=== PATIENT | male | born 1990 | race Caucasian/White ===

== ENCOUNTER 2016-09-09 20:18 | Emergency (ER) | payer MEDICAID ==
[~2016-09-09] VITALS: Ht 175.3 cm; Wt 92.5 kg
[2016-09-09 20:18] VITALS: BP_SYST 132
[2016-09-09] MEDS ORDERED: HYDROcodone/ACETAMIN 5-325 MG TAB (NORCO/ VICODIN) PO ONE (22:15)
[2016-09-09 22:55] VITALS: BP_SYST 128
== END 2016-09-09 22:55 | disposition home or self-care (01) ==
LOC: SED 20:18
DX: M25.521 Pain in right elbow (principal); M25.531 Pain in right wrist
CPT/HCPCS: 99284

== ENCOUNTER 2017-01-17 12:08 | Emergency (ER) | payer MEDICAID ==
[~2017-01-17] VITALS: Ht 172.7 cm; Wt 86.2 kg
[2017-01-17 12:17] VITALS: BP_SYST 147
[2017-01-17 13:31] VITALS: BP_SYST 135
== END 2017-01-17 13:31 | disposition home or self-care (01) ==
LOC: SED 12:08
DX: S66.911A Strain of unspecified muscle, fascia and tendon at wrist and hand level, right hand, initial encounter (principal); F17.200 Nicotine dependence, unspecified, uncomplicated; X50.0XXA Overexertion from strenuous movement or load, initial encounter; Y93.89 Activity, other specified; Y92.89 Other specified places as the place of occurrence of the external cause; Y99.8 Other external cause status
CPT/HCPCS: 99284